=== PATIENT | male | born 1945 | race Caucasian/White ===

== ENCOUNTER → 2023-11-14 08:58 | Outpatient (CLI) | payer OTHER, SELFPAY ==
--- NOTE | 2023-11-14 09:00 | DI.ECHO.S_ITS ---
[place] +---------+ [facility] : : [address] : : [place] : : [id number] : : Phone: [phone] Echocardiogram Report + + :Name: MARK LOPES Study Date: 11/14/2023 Height: 67 in : :[facility] ReadingLocation: Weight: 195 lb : : Gender: Male BSA: 2.0 m2 : :: 1945 Age: 78 yrs BP: 157/91 mmHg: :Reason For Study: ISCHEMIC HEART DISEASE : :Ordering Physician: DIPTI, : :ARUNA Performed By: Kori Palma : :Referring: ARUNA RESENDEZ : + + Interpretation Summary The ejection fraction is estimated to be 55-60%. Diastolic function could not be accurately assessed due to unobtainable data. The left atrium is mildly dilated. The right ventricle is normal in size and function. There is mild mitral regurgitation. Pulmonary artery pressures cannot be estimated because of the lack of a measurable TR jet velocity but the IVC suggests a CVP of around 3 mmHg. Procedure: A two-dimensional transthoracic echocardiogram with color flow and Doppler was performed. The study quality was technically adequate. There is no prior echocardiogram noted for this patient. The patient was in sinus rhythm with heart rates between 54-72 bpm during the exam. Left Ventricle: The left ventricle is normal in size and wall thickness. The ejection fraction is estimated to be 55-60%. Diastolic function could not be accurately assessed due to unobtainable data. Right Ventricle: The right ventricle is normal in size and function. Atria: The left atrium is mildly dilated. Right atrial size is normal. There is no Doppler evidence for an interatrial shunt. Mitral Valve: The mitral valve is normal. There is mild mitral regurgitation. Aortic Valve: The aortic valve is trileaflet. The aortic valve opens well. The aortic valve is mildly calcified. There is no aortic valve stenosis. No aortic regurgitation is present. Tricuspid Valve: The tricuspid valve is normal in structure and function. There is trace tricuspid regurgitation. Pulmonary artery pressures cannot be estimated because of the lack of a measurable TR jet velocity but the IVC suggests a CVP of around 3 mmHg. Pulmonic Valve: The pulmonic valve leaflets are thin and pliable; valve motion is normal. There is mild pulmonic regurgitation. Great Vessels: The aortic root is normal size. The dimensions of the ascending aorta are normal. The IVC is of normal diameter and collapses greater than 50% with a sniff. This suggests a low right atrial pressure of 3 mm Hg. Pericardium/ Pleura There is no pericardial effusion. There is no pleural effusion. MMode/2D Measurements & Calculations LVIDd: 4.0 cm LVOT diam: 2.0 cm LVIDs: 2.9 cm Ao root diam: 3.2 cm FS: 27.8 % asc Aorta Diam: 3.5 cm IVSd: 1.0 cm Ao Arch Diam (Prox Trans): 3.4 cm LVPWd: 0.87 cm LV souza. diameter/BSA (cm/m^2): 2.0 LV sys. diameter/BSA (cm/m^2): 1.4 LA A2 area: 24.3 cm2 RA long axis: 5.0 cm LA A4 area: 22.3 cm2 RA area: 17.6 cm2 LA length (vol): 6.0 cm RA vol: 52.9 ml LA vol: 76.1 ml RA : 26.4 ml/m2 LA vol index: 38.0 ml/m2 IVC diam: 1.4 cm RVD1 (basal): 3.6 cm RVD2 (mid): 3.5 cm TAPSE: 2.0 cm Doppler Measurements & Calculations Ao V2 max: 148.2 cm/sec LVOT Max Yasir: 98.3 cm/sec Ao V2 mean: 102.5 cm/sec LV V1 max P.9 mmHg Ao max P.8 mmHg LV V1 VTI: 20.3 cm Ao mean P.6 mmHg PAT(I,D): 2.2 cm2 Ao V2 VTI: 29.6 cm PAT(V,D): 2.1 cm2 sev ratio: 0.69 PAT indexed to BSA (cm^2/m^2): 1.1 MV E max yasir: 56.8 cm/sec PA V2 max: 129.1 cm/sec MV A max yasir: 68.7 cm/sec PA V2 mean: 84.8 cm/sec MV E/A: 0.83 PA mean P.3 mmHg Med Peak E' Yasir: 6.1 cm/sec PA pr(Accel): 32.8 mmHg E/E' med: 9.3 Lat Peak E' Yasir: 6.4 cm/sec E/E' lat: 8.8 E/e' average: 9.0 MV dec time: 0.20 sec SV(LVOT): 65.6 ml Reading Physician:12:20 PM
== END ==
LOC: ECHO 08:59
PROVIDERS: Referring Provider Orthopaedic Surgery; Visit Provider Orthopaedic Surgery
DX: I25.9 Chronic ischemic heart disease, unspecified (principal); I08.0 Rheumatic disorders of both mitral and aortic valves
CPT/HCPCS: 93306